=== PATIENT | male | born 1980 | race Caucasian/White ===

== ENCOUNTER 2017-06-17 10:13 | Emergency (ER) | payer OTHER ==
[~2017-06-17] VITALS: Ht 180.3 cm; Wt 77.4 kg
[~2017-06-17 10:13] MED LIST: CYCL-319 PO; NAPR-260 PO
[2017-06-17 10:16] VITALS: Ht 180.3 cm; Wt 77.4 kg
--- NOTE | 2017-06-17 11:31 | ERD ---
ER Documentation Chief Complaint Chief Complaint Left inguinal pain x4 days HPI 36-year-old male, presents to the emergency department complaining of left inguinal mass associated with pain, the pain is dull, constant, currently 7/10. No recent trauma, no erythema, no warmth on palpation. Denies abdominal pain no fever. He was diagnosed with a left inguinal hernia 3 months ago and he has an appointment to see a surgeon in 2 weeks. ROS All systems reviewed and are negative except as per history of present illness. Medications Home Meds Active Scripts Hydrocodone/Acetaminophen ([place] 5-325 Tablet) 1 Each Tablet, 1 TAB PO Q6H Y for PAIN, #12 TAB Prov:TELMA ALEXANDRA MD 06/17/17 Naproxen* (Naprosyn*) 500 Mg Tablet, 500 MG PO BID Y for PAIN AND/OR INFLAMMATION, #30 TAB Prov:MARILOU RAMOS PA-C 07/02/16 Cyclobenzaprine Hcl* (Cyclobenzaprine Hcl*) 10 Mg Tablet, 10 MG PO TID, #15 TAB Prov:MARILOU RAMOS PA-C 07/02/16 PMhx/Soc Hx Miscellaneous Medical Probl: Yes (LEFT SHOULDER PINCHED NERVE) Hx Alcohol Use: No Hx Substance Use: Yes (MARIJUANA) Hx Tobacco Use: No Physical Exam Vitals Vital Signs Date Time Temp Pulse Resp B/P Pulse Ox O2 Delivery O2 Flow Rate FiO2 06/17/17 10:16 98.8 85 20 125/86 99 Physical Exam Const: Alert, oriented, in no distress Head: Atraumatic Eyes: Normal Conjunctiva ENT: Normal External Ears, Nose and Mouth. Neck: Full range of motion..~ No meningismus. Resp: Clear to auscultation bilaterally Cardio: Regular rate and rhythm, no murmurs Abd: Soft, non tender, non distended. Normal bowel sounds, 4 cm inguinal mass , no erythema, warmth, tenderness no fluctuance, reducible. Skin: No petechiae or rashes Back: No midline or flank tenderness Ext: No cyanosis, or edema Neur: Awake and alert Psych: Normal Mood and Affect Results 24 hrs Current Medications Medications (Trade) Dose Ordered Sig/Angelito Route PRN Reason Start Time Stop Time Status Last Admin Dose Admin Ketorolac Tromethamine (Toradol) 60 mg ONCE STAT IM 12/1/17 11:47 06/17/17 11:49 DC 06/17/17 11:52 Procedures/MDM 36y/o male patient with history of left inguinal hernia, presents to the ED c/o worsening of pain for 4 days. Vital signs stable, Physical exam unremarkable except for 4 cm reducible inguinal hernia. Differential diagnosis include but not limited to: Hernia, abscess, lymph node. Low suspicion for incarceration, gangrene, no skin infection.. Physical examination and clinical presentation consistent most likely with left inguinal hernia without gangrene or obstruction. During the ED course the patient remained stable, no new complaints. The patient received treatment with Toradol IM presenting overall improvement of the symptoms. Results and clinical impression discussed with patient who agrees with management. The patient is stable to be treated outpatient and will be discharged home with a Rx for [place] Side effects of prescribed medications (headache, rash, nausea, vomiting, diarrhea) were reviewed. Side effects of prescribed opiates (drowsiness, habituation) were reviewed. The patient was instructed to follow up with the primary care provider in the next 48h. If symptoms persist, worsen or new symptoms develop, then patient should return to the ED immediately. Instructions explained and given to patient in Syriac with acknowledgment and demonstrated understanding. Disclaimer: Inadvertent spelling and grammatical errors are likely due to EHR/ dictation software use and do not reflect on the overall quality of patient care. Also, please note that the electronic time recorded on this note does not necessarily reflect the actual time of the patient encounter. Departure Diagnosis: Primary Impression: Inguinal hernia of left side without obstruction or gangrene Condition: Stable Additional Instructions: Call your primary care doctor TOMORROW for an appointment during the next 1-2 days. See the doctor sooner or return here if your condition worsens before your appointment time. Thank you very much for allowing us to participate in your care. Your health and safety is our top priority at [facility]. Have prescriptions filled and follow precisely the directions on the label. Follow-up with primary care provider during the next 4 days and bring all the information and medications prescribed. If illness has not improved in 2 days, then make an appointment with primary care provider. If the provider is unavailable, return to the Emergency Department immediately. TELMA ALEXANDRA MD Jun 17, 2017 11:31
[2017-06-17] MEDS ORDERED: KETOROLAC 60 MG INJ IM STA (11:47)
[2017-06-17] MEDS ORDERED: HYDR-906 PO (12:42)
== END 2017-06-17 13:58 | disposition home or self-care (01) ==
LOC: FTE 10:13
DX: K40.90 Unilateral inguinal hernia, without obstruction or gangrene, not specified as recurrent (principal)
CPT/HCPCS: 96372; J1885; Z7502